=== PATIENT | female | born 1975 | race Caucasian/White ===

== ENCOUNTER 2017-02-26 17:42 | Emergency (ER) | payer OTHER ==
[2017-02-26] MEDS ORDERED: NITROGLYCERIN 0.4 MG 25 EA TAB SL ONE (18:07)
[2017-02-26] MEDS ORDERED: ASPIRIN TABLET 325 MG TAB PO ONE (18:07)
--- NOTE | 2017-02-26 18:21 | ED.PDOC ---
History of Present Illness - General Chief Complaint: Chest Pain/NH Stated Complaint: chest pain Time Seen by Provider: 02/26/17 18:07 Source: patient Exam Limitations: no limitations - History of Present Illness Initial Comments: Melanie Patel 41 y/o female stated that while she was at home sitting on her chair she had onset of chest heaviness got sweaty felt dizzy,nauseated and also had sharp headache her symptoms been steady and decide to come to er.Has history of htn,removal of brain tumor s/p craniotomy. Timing/Duration: 4-6 hours Severity: moderate Location: central, other - radiation to her back Activities at Onset: rest Prior Chest Pain/Cardiac Workup: no prior chest pain, no prior cardiac workup Improving Factors: nothing Worsening Factors: nothing Nitro Today/Relief: provided by ED Aspirin Treatment Today: 325 mg x 1, provided by ED Associated Symptoms: diaphoresis, headaches, nausea/vomiting Allergies/Adverse Reactions: Allergies NO KNOWN ALLERGY Allergy (Verified 02/26/17 17:59) Home Medications: Ambulatory Orders Fesoterodine Fumarate [Toviaz] 8 mg PO DAILY #0 07/01/13 Cephalexin Monohydrate [Keflex Cap] 500 mg PO Q6HRS #30 cap 12/06/14 Eletriptan Hydrobromide [Relpax] 40 mg PO DAILY PRN 12/06/14 Gabapentin 300 mg PO BID 04/03/15 HYDROcodone 10MG/APAP 325MG 10 bottle PO PRN 04/03/15 traZODone HCL [Desyrel] 150 mg PO DAILY 04/03/15 Review of Systems - Review of Systems Constitutional: States: no symptoms reported EENTM: States: no symptoms reported Cardiology: States: see HPI Gastrointestinal/Abdominal: States: no symptoms reported Genitourinary: States: other - oab chronic Musculoskeletal: States: no symptoms reported Skin: States: no symptoms reported Neurological: States: seizure - disorder Endocrine: States: no symptoms reported Hematologic/Lymphatic: States: no symptoms reported Past Medical History (General) - Patient Medical History Hx Seizures: Yes Hx Stroke: No Hx Dementia: No Hx Asthma: No Hx of COPD: No Hx Cardiac Disorders: No Hx Congestive Heart Failure: No Hx Pacemaker: No Hx Hypertension: Yes Hx Thyroid Disease: No Hx Diabetes: No Hx Gastroesophageal Reflux: No Hx Renal Disease: No Hx Cancer: No Hx of HIV: No Hx Hepatitis C: No Hx MRSA: No Hx Other PMH: Yes - migraine headaches Surgical History: Hysterectomy, other - craniotomy ,hysterectomy, carpal tunnel,c-spine - Vaccination History Hx Tetanus, Diphtheria Vaccination: No Hx Influenza Vaccination: Yes Hx Pneumococcal Vaccination: Yes - Social History Hx Tobacco Use: No Hx Chewing Tobacco Use: No Hx Alcohol Use: No Hx Substance Use: No Hx Substance Use Treatment: No Hx Depression: No Hx Physical Abuse: No Hx Emotional Abuse: No Hx Suspected Abuse: No - Activities of Daily Living Patient Lives Alone: No - family Hospice Agency (if applicable):: None Grooming Ability: Independent Eating (Feeding) Ability: Independent Toileting Ability: Independent - Female History Patient is a Female of Child Bearing Age (10 -59 yrs old): No Patient : No Family Medical History - Family History Mother Family History: Unknown Living Status: Unknown Hx Family Hypertension: Yes - parents Hx Family Stroke: Yes - brain aneurysm-dad,sister from it Hx Cardiac Disease: Yes - parents Physical Exam - Physical Exam General Appearance: Alert, Anxious, No apparent distress Eyes, Ears, Nose, Throat Exam: PERRL/EOMI, normal ENT inspection, TMs normal Neck: non-tender, full range of motion, supple, normal inspection Respiratory: chest non-tender, lungs clear, normal breath sounds, no respiratory distress Cardiovascular/Chest: normal peripheral pulses, regular rate, rhythm, no edema, no murmur Peripheral Pulses: radial,right: 2+, radial,left: 2+ Gastrointestinal/Abdominal: normal bowel sounds, non tender, soft, no organomegaly Extremity: normal range of motion, non-tender, normal inspection Neurologic: no motor/sensory deficits, alert, normal mood/affect, oriented x 3 Skin Exam: normal color, warm/dry Lymphatic: no adenopathy Progress - Results/Orders Results/Orders: Vital Signs - 8 hr 02/26/17 02/26/17 02/26/17 17:45 18:00 18:48 Temperature 98.4 F Pulse Rate [ 121 H 115 H pulse ox] Respiratory 20 Rate Blood Pressure 154/81 [Right Arm] O2 Sat by Pulse 96 96 Oximetry 02/26/17 18:07 IV Care:Saline Lock per Protoc QSHIFT Telemetry .ONCE Sodium Chloride 0.9% (Flush) [Saline Flush Syringe] 10 ml IV PRN PRN EKG Stat Pulse Ox Stat 02/26/17 18:20 THYROID STIMULATING HORMONE Stat Laboratory Results WBC 14.5 K/mm3 (4.8-10.8) H 02/26/17 18:20 RBC 4.45 M/mm3 (4.20-5.40) 02/26/17 18:20 Hgb 12.9 gm/dL (12.0-16.0) 02/26/17 18:20 Hct 39.1 % (36.0-47.0) 02/26/17 18:20 MCV 88.0 fl (81.0-99.0) 02/26/17 18:20 MCH 29.1 pg (27.0-31.0) 02/26/17 18:20 MCHC 33.1 g/dL (33.0-37.0) 02/26/17 18:20 RDW 13.4 % (11.5-14.5) 02/26/17 18:20 Plt Count 240 K/mm3 (130-400) 02/26/17 18:20 MPV 7.7 fl (7.40-10.4) 02/26/17 18:20 Absolute Neuts (auto) 11.70 K/uL (1.8-6.8) H 02/26/17 18:20 Absolute Lymphs (auto) 2.10 K/uL (1.0-3.4) 02/26/17 18:20 Absolute Monos (auto) 0.60 K/uL (0.2-0.8) 02/26/17 18:20 Absolute Eos (auto) 0.10 K/uL (0.0-0.4) 02/26/17 18:20 Absolute Basos (auto) 0.10 K/uL (0.0-0.1) 02/26/17 18:20 Neutrophils % 80.4 % (42.0-78.0) H 02/26/17 18:20 Lymphocytes % 14.4 % (20.0-50.0) L 02/26/17 18:20 Monocytes % 4.1 % (2.0-9.0) 02/26/17 18:20 Eosinophils % 0.3 % (1.0-5.0) L 02/26/17 18:20 Basophils % 0.8 % (0.0-2.0) 02/26/17 18:20 PT 10.3 SECONDS (9.4-12.5) 02/26/17 18:20 INR 0.910 02/26/17 18:20 PTT (SP) 32.6 SECONDS (25.1-36.5) 02/26/17 18:20 D-Dimer, Quantitative < 230 ng/mL (0-230) 02/26/17 18:20 Sodium 138 mmol/L (135-145) 02/26/17 18:20 Potassium 3.1 mmol/L (3.6-5.0) L 02/26/17 18:20 Chloride 107 mmol/L (101-111) 02/26/17 18:20 Carbon Dioxide 24 mmol/L (21-31) 02/26/17 18:20 Anion Gap 10.1 (12-18) L 02/26/17 18:20 BUN 17 mg/dL (7-18) 02/26/17 18:20 Creatinine 0.95 mg/dL (0.6-1.3) 02/26/17 18:20 BUN/Creatinine Ratio 17.9 (10-20) 02/26/17 18:20 Random Glucose 126 mg/dL (70-105) H 02/26/17 18:20 Serum Osmolality 278.8 mOsm/L (275-295) 02/26/17 18:20 Calcium 9.9 mg/dL (8.4-10.2) 02/26/17 18:20 Magnesium 1.8 mg/dL (1.8-2.5) 02/26/17 18:20 Total Bilirubin 0.2 mg/dL (0.2-1.0) 02/26/17 18:20 Direct Bilirubin < 0.1 mg/dL (0-0.2) 02/26/17 18:20 Indirect Bilirubin 0.1 mg/dL (0.2-0.8) L 02/26/17 18:20 AST 19 IU/L (10-42) 02/26/17 18:20 ALT 23 IU/L (10-60) 02/26/17 18:20 Alkaline Phosphatase 79 IU/L (42-121) 02/26/17 18:20 Creatine Kinase 43 IU/L (26-140) 02/26/17 18:20 CK-MB (CK-2) 1.2 ng/mL (0.0-4.4) 02/26/17 18:20 CK-MB (CK-2) % Not Reportable 02/26/17 18:20 Troponin I < 0.02 ng/mL (0.01-0.05) 02/26/17 18:20 B-Natriuretic Peptide 10.0 pg/ml (0-100) 02/26/17 18:20 Serum Total Protein 7.0 gm/dL (6.4-8.2) 02/26/17 18:20 Albumin 3.8 g/dl (3.2-5.5) 02/26/17 18:20 Urine Color Yellow (Yellow) 02/26/17 18:35 Urine Appearance Clear (Clear) 02/26/17 18:35 Urine pH 7.0 (4.5-7.8) 02/26/17 18:35 Ur Specific [place] 1.020 (1.005-1.030) 02/26/17 18:35 Urine Protein Negative mg/dL 02/26/17 18:35 Urine Glucose (UA) Negative mg/dL (Negative) 02/26/17 18:35 Urine Ketones Negative mg/dL (NEGATIVE) 02/26/17 18:35 Urine Blood Negative (Negative) 02/26/17 18:35 Urine Nitrite Negative 02/26/17 18:35 Urine Bilirubin Negative (NEGATIVE) 02/26/17 18:35 Urine Urobilinogen 0.2 mg/dL (0.2-1.0) 02/26/17 18:35 Ur Leukocyte Esterase Negative (Negative) 02/26/17 18:35 Urine RBC 0 /hpf 02/26/17 18:35 Urine WBC 0 /hpf 02/26/17 18:35 Ur Epithelial Cells 0 /hpf 02/26/17 18:35 Urine Bacteria 0 02/26/17 18:35 Urine Opiates Screen Negative ng/mL (2000) 02/26/17 18:35 Urine Barbiturates Negative ng/mL (200) 02/26/17 18:35 Ur Phencyclidine Scrn Negative ng/mL (25) 02/26/17 18:35 U Amphetamin/Meth Scrn Negative ng/mL (1000) 02/26/17 18:35 U Benzodiazepines Scrn Negative ng/mL (200) 02/26/17 18:35 U Cocaine Metab Screen Negative ng/mL (300) 02/26/17 18:35 U Cannabinoids Screen Negative ng/mL (50) 02/26/17 18:35 Vital Signs - 8 hr 02/26/17 02/26/17 02/26/17 17:45 18:00 18:48 Temperature 98.4 F Pulse Rate Pulse Rate [ 121 H 115 H pulse ox] Respiratory 20 Rate Blood Pressure 154/81 [Right Arm] O2 Sat by Pulse 96 96 Oximetry 02/26/17 02/26/17 02/26/17 19:16 20:13 20:30 Temperature 98.8 F Pulse Rate 104 H 94 H Pulse Rate [ 104 H 94 H pulse ox] Respiratory 16 16 Rate Blood Pressure 109/52 94/62 110/64 [Right Arm] O2 Sat by Pulse 98 98 Oximetry Vital Signs - 8 hr 02/26/17 02/26/17 02/26/17 17:45 18:00 18:48 Temperature 98.4 F Pulse Rate Pulse Rate [ 121 H 115 H pulse ox] Respiratory 20 Rate Blood Pressure 154/81 [Right Arm] O2 Sat by Pulse 96 96 Oximetry 02/26/17 02/26/17 02/26/17 19:16 20:13 20:30 Temperature 98.8 F Pulse Rate 104 H 94 H Pulse Rate [ 104 H 94 H pulse ox] Respiratory 16 16 Rate Blood Pressure 109/52 94/62 110/64 [Right Arm] O2 Sat by Pulse 98 98 Oximetry 02/26/17 02/26/17 02/26/17 21:06 21:36 22:14 Temperature Pulse Rate 83 Pulse Rate [ 83 86 87 pulse ox] Respiratory 18 16 12 Rate Blood Pressure 109/64 122/75 72/47 [Right Arm] O2 Sat by Pulse 99 97 Oximetry 02/26/17 22:32 Temperature Pulse Rate Pulse Rate [ 83 pulse ox] Respiratory 11 L Rate Blood Pressure 108/51 [Right Arm] O2 Sat by Pulse Oximetry 02/26/17 18:07 IV Care:Saline Lock per Protoc QSHIFT Telemetry .ONCE Sodium Chloride 0.9% (Flush) [Saline Flush Syringe] 10 ml IV PRN PRN EKG Stat Pulse Ox Stat 02/26/17 20:00 EKG STAT 02/26/17 20:59 Hold Metformin x 48Hrs [id number] 02/26/17 22:13 Sodium Chloride 0.9% 1000ML [Ns 1000 ml] 1,000 ml IVS ONCE Laboratory Results WBC 14.1 K/mm3 (4.8-10.8) H 02/26/17 21:08 RBC 4.06 M/mm3 (4.20-5.40) L 02/26/17 21:08 Hgb 11.8 gm/dL (12.0-16.0) L 02/26/17 21:08 Hct 36.1 % (36.0-47.0) 02/26/17 21:08 MCV 88.9 fl (81.0-99.0) 02/26/17 21:08 MCH 29.0 pg (27.0-31.0) 02/26/17 21:08 MCHC 32.7 g/dL (33.0-37.0) L 02/26/17 21:08 RDW 13.6 % (11.5-14.5) 02/26/17 21:08 Plt Count 225 K/mm3 (130-400) 02/26/17 21:08 MPV 7.6 fl (7.40-10.4) 02/26/17 21:08 Absolute Neuts (auto) 11.00 K/uL (1.8-6.8) H 02/26/17 21:08 Absolute Lymphs (auto) 2.30 K/uL (1.0-3.4) 02/26/17 21:08 Absolute Monos (auto) 0.70 K/uL (0.2-0.8) 02/26/17 21:08 Absolute Eos (auto) 0.10 K/uL (0.0-0.4) 02/26/17 21:08 Absolute Basos (auto) 0.10 K/uL (0.0-0.1) 02/26/17 21:08 Neutrophils % 78.0 % (42.0-78.0) 02/26/17 21:08 Lymphocytes % 16.0 % (20.0-50.0) L 02/26/17 21:08 Monocytes % 5.0 % (2.0-9.0) 02/26/17 21:08 Eosinophils % 0.4 % (1.0-5.0) L 02/26/17 21:08 Basophils % 0.6 % (0.0-2.0) 02/26/17 21:08 PT 10.3 SECONDS (9.4-12.5) 02/26/17 18:20 INR 0.910 02/26/17 18:20 PTT (SP) 32.6 SECONDS (25.1-36.5) 02/26/17 18:20 D-Dimer, Quantitative < 230 ng/mL (0-230) 02/26/17 18:20 Sodium 138 mmol/L (135-145) 02/26/17 18:20 Potassium 3.1 mmol/L (3.6-5.0) L 02/26/17 18:20 Chloride 107 mmol/L (101-111) 02/26/17 18:20 Carbon Dioxide 24 mmol/L (21-31) 02/26/17 18:20 Anion Gap 10.1 (12-18) L 02/26/17 18:20 BUN 17 mg/dL (7-18) 02/26/17 18:20 Creatinine 0.95 mg/dL (0.6-1.3) 02/26/17 18:20 BUN/Creatinine Ratio 17.9 (10-20) 02/26/17 18:20 Random Glucose 126 mg/dL (70-105) H 02/26/17 18:20 Serum Osmolality 278.8 mOsm/L (275-295) 02/26/17 18:20 Lactic Acid 0.4 mmol/L (0.5-2.2) L 02/26/17 20:14 Calcium 9.9 mg/dL (8.4-10.2) 02/26/17 18:20 Magnesium 1.8 mg/dL (1.8-2.5) 02/26/17 18:20 Total Bilirubin 0.2 mg/dL (0.2-1.0) 02/26/17 18:20 Direct Bilirubin < 0.1 mg/dL (0-0.2) 02/26/17 18:20 Indirect Bilirubin 0.1 mg/dL (0.2-0.8) L 02/26/17 18:20 AST 19 IU/L (10-42) 02/26/17 18:20 ALT 23 IU/L (10-60) 02/26/17 18:20 Alkaline Phosphatase 79 IU/L (42-121) 02/26/17 18:20 Creatine Kinase 43 IU/L (26-140) 02/26/17 18:20 CK-MB (CK-2) 1.2 ng/mL (0.0-4.4) 02/26/17 18:20 CK-MB (CK-2) % Not Reportable 02/26/17 18:20 Troponin I < 0.02 ng/mL (0.01-0.05) 02/26/17 20:14 B-Natriuretic Peptide 10.0 pg/ml (0-100) 02/26/17 18:20 Serum Total Protein 7.0 gm/dL (6.4-8.2) 02/26/17 18:20 Albumin 3.8 g/dl (3.2-5.5) 02/26/17 18:20 TSH 1.74 uIU/mL (0.34-5.60) 02/26/17 18:20 Urine Color Yellow (Yellow) 02/26/17 18:35 Urine Appearance Clear (Clear) 02/26/17 18:35 Urine pH 7.0 (4.5-7.8) 02/26/17 18:35 Ur Specific [place] 1.020 (1.005-1.030) 02/26/17 18:35 Urine Protein Negative mg/dL 02/26/17 18:35 Urine Glucose (UA) Negative mg/dL (Negative) 02/26/17 18:35 Urine Ketones Negative mg/dL (NEGATIVE) 02/26/17 18:35 Urine Blood Negative (Negative) 02/26/17 18:35 Urine Nitrite Negative 02/26/17 18:35 Urine Bilirubin Negative (NEGATIVE) 02/26/17 18:35 Urine Urobilinogen 0.2 mg/dL (0.2-1.0) 02/26/17 18:35 Ur Leukocyte Esterase Negative (Negative) 02/26/17 18:35 Urine RBC 0 /hpf 02/26/17 18:35 Urine WBC 0 /hpf 02/26/17 18:35 Ur Epithelial Cells 0 /hpf 02/26/17 18:35 Urine Bacteria 0 02/26/17 18:35 Urine Opiates Screen Negative ng/mL (2000) 02/26/17 18:35 Urine Barbiturates Negative ng/mL (200) 02/26/17 18:35 Ur Phencyclidine Scrn Negative ng/mL (25) 02/26/17 18:35 U Amphetamin/Meth Scrn Negative ng/mL (1000) 02/26/17 18:35 U Benzodiazepines Scrn Negative ng/mL (200) 02/26/17 18:35 U Cocaine Metab Screen Negative ng/mL (300) 02/26/17 18:35 U Cannabinoids Screen Negative ng/mL (50) 02/26/17 18:35 - EKG/XRAY/CT EKG: Sinus, Tachy, no ST T wave changes Comments: heart rate-117 CT: head no contrast-no acute abnormalities noted/radiologist - Additional EKG/XRAY/Consults EKG #2: Sinus, no ST T wave changes Comments: heart rate-86 Departure - Departure Clinical Impression: Chest tightness or pressure Migraine Qualifiers: Migraine type: unspecified Status migrainosus presence: without status migrainosus Intractability: not intractable Qualified Code(s): G43.909 - Migraine, unspecified, not intractable, without status migrainosus Hypotension Qualifiers: Hypotension type: idiopathic hypotension Qualified Code(s): I95.0 - Idiopathic hypotension Time of Disposition: 22:41 - D/W Dr. Diego sunshine md [facility] for transfer Disposition: Transfer to Hospital Condition: Fair Departure Forms: Patient Portal Self Enrollment Referrals: QUINCY HERNANDEZ [Primary Care Provider] - 1-2 Weeks Home Medications: Ambulatory Orders Fesoterodine Fumarate [Toviaz] 8 mg PO DAILY #0 07/01/13 Cephalexin Monohydrate [Keflex Cap] 500 mg PO Q6HRS #30 cap 12/06/14 Eletriptan Hydrobromide [Relpax] 40 mg PO DAILY PRN 12/06/14 Gabapentin 300 mg PO BID 04/03/15 HYDROcodone 10MG/APAP 325MG 10 bottle PO PRN 04/03/15 traZODone HCL [Desyrel] 150 mg PO DAILY 04/03/15
[2017-02-26] MEDS ORDERED: SODIUM CHLORIDE 0.9% 500ML 500 ML IVS ONE (18:26)
--- NOTE | 2017-02-26 18:32 | RAD ---
EXAM DESCRIPTION: Chest,1 View CLINICAL HISTORY: 41 years Female pain COMPARISON: None. FINDINGS: The cardiomediastinal silhouette appears unremarkable. No consolidating infiltrates or pleural effusions. No pneumothorax. IMPRESSION: No acute abnormality is identified. Electronically signed by: Digna Thurman 02/26/2017 6:32 PM CDT
[2017-02-26] MEDS: SODIUM CHLORIDE 0.9% (FLUSH) 10 ML SYG IV PRN ×2 (19:04→20:12)
[2017-02-26] MEDS ORDERED: fentaNYL CITRATE INJ 50 MCG/ML AMP IV ONE (19:28)
[2017-02-26] MEDS ORDERED: SODIUM CHLORIDE 0.9% 1000ML 1,000 ML IVS ONE ×2 (19:36→22:13)
--- NOTE | 2017-02-26 20:13 | CT ---
PROCEDURE: Head CLINICAL HISTORY: 41 years Female headache COMPARISON: 09/17/2012 TECHNIQUE: Contiguous axial images obtained through the brain without IV contrast. This exam was performed according to our department optimization program which includes automated exposure control, adjustment of the mA and/or kv according to patient size and/or use of iterative reconstruction technique. FINDINGS: The ventricles and sulci are within normal limits for the patient's age. No midline shift or mass effect. No masses identified. No acute intracranial hemorrhage. No fluid or significant mucosal thickening in the visualized paranasal sinuses. No depressed calvarial fractures. IMPRESSION: No acute intracranial abnormality is identified. Electronically signed by: Digna Thurman 02/26/2017 8:13 PM CDT
--- NOTE | 2017-02-26 21:49 | CT ---
PROCEDURE: CTA Chest CLINICAL HISTORY: 41 years Female pain COMPARISON: None. TECHNIQUE: Contiguous axial images obtained through the chest during the infusion of IV contrast. Reformatted images obtained. MIP reformatted images obtained. This exam was performed according to our department optimization program which includes automated exposure control, adjustment of the mA and/or kv according to patient size and/or use of iterative reconstruction technique. FINDINGS: The aorta is normal in caliber without dissection or rupture. No evidence of pulmonary embolus. No mediastinal or hilar adenopathy. No acute infiltrate. No pericardial or pleural effusion. Upper abdominal structures appear unremarkable. IMPRESSION:No evidence of pulmonary embolus Electronically signed by: Digna Thurman 02/26/2017 9:49 PM CDT
[2017-02-26] MEDS ORDERED: SODIUM CHLORIDE 0.9% 1000ML 1,000 ML ONE (22:14)
[2017-02-26 22:15] VITALS: O2SAT 97
[2017-02-26] MEDS ORDERED: HYDROCORTISONE SOD SUCC INJ 100 MG/2 ML VIAL IV ONE (22:17)
[2017-02-26 23:10] VITALS: BP 97/68; TEMP 97.7
== END 2017-02-26 23:08 | disposition short-term general hospital (02) ==
LOC: ER 17:42
DX: R07.89 Other chest pain (principal); G43.909 Migraine, unspecified, not intractable, without status migrainosus; I95.0 Idiopathic hypotension; I10 Essential (primary) hypertension; Z79.899 Other long term (current) drug therapy
CPT/HCPCS: 36415; 70450; 71010; 71275; 80048; 80076; 80307; 81001; 82550; 82553; 83605; 83880; 84443; 84484; 85025; 85379; 85610; 85730; 93005; 94760; J1720; J3010; J7030; J7040

== ENCOUNTER 2018-06-05 17:18 | Emergency (ER) | payer OTHER ==
[2018-06-05] MEDS ORDERED: SODIUM CHLORIDE 0.9% 1000ML 1,000 ML IVS ONE (17:34)
[2018-06-05] MEDS ORDERED: KETOROLAC TROMETHAMINE INJ 30 MG/ML VIAL IV ONE (17:34)
[2018-06-05] MEDS ORDERED: SODIUM CHLORIDE 0.9% (FLUSH) 10 ML SYG IV PRN (17:34)
[2018-06-05] MEDS ORDERED: PROMETHAZINE HCL INJ 25 MG in SODIUM CHLORIDE 0.9% 50ML 50 ML IVPB ONE (17:35)
[2018-06-05 17:38] VITALS: O2SAT 100
--- NOTE | 2018-06-05 17:44 | ED.PDOC ---
History of Present Illness - General Source: patient Exam Limitations: no limitations - History of Present Illness Initial Comments: PT REPORTS 3 DAY HISTORY OF 9/10 MIGRAINE HEADACHE ASSOCIATED WITH NAUSEA, VOMITING, AND PHOTOPHOBIA. PT REPORTS THAT SHE HAS HAD INCREASED SEIZURE ACTIVITY ACCORDING TO HER . PT STATES THAT TODAYS MIGRAINE IS TYPICAL OF MIGRAINES IN THE PAST. SHE REPORTS NO RELIEF FROM RELPAX AT HOME. Quality: severe Head Injury Location: frontal Recent Head Trauma: chronic headaches Improving Factors: rest, other - DARK QUIET ROOM Worsening Factors: other - BRIGHT LIGHT/LOUD NOISES Associated Symptoms: nausea/vomiting, seizures <Arcelia Fulton H - Last Filed: 06/05/18 17:39> <Sherif Bateman - Last Filed: 06/05/18 20:44> - General Chief Complaint: Headache Stated Complaint: MIGRAINE, N/V Time Seen by Provider: 06/05/18 17:34 - History of Present Illness Allergies/Adverse Reactions: Allergies NO KNOWN ALLERGY Allergy (Verified 02/26/17 17:59) Home Medications: Ambulatory Orders Fesoterodine Fumarate [Toviaz] 8 mg PO DAILY #0 07/01/13 Cephalexin Monohydrate [Keflex Cap] 500 mg PO Q6HRS #30 cap 12/06/14 Eletriptan Hydrobromide [Relpax] 40 mg PO DAILY PRN 12/06/14 Gabapentin 300 mg PO BID 04/03/15 HYDROcodone 10MG/APAP 325MG 10 bottle PO PRN 04/03/15 traZODone HCL [Desyrel] 150 mg PO DAILY 04/03/15 Review of Systems - Review of Systems Constitutional: Denies: chills, fever EENTM: Denies: blurred vision, double vision Respiratory: Denies: cough, short of breath Cardiology: Denies: chest pain, palpitations Gastrointestinal/Abdominal: States: see HPI, nausea, vomiting. Denies: abdominal pain Genitourinary: Denies: dysuria, frequency Musculoskeletal: Denies: joint pain, joint swelling Skin: Denies: dryness, lesions Neurological: States: see HPI, headache, seizure. Denies: numbness Endocrine: States: no symptoms reported <Arcelia Fulton H - Last Filed: 06/05/18 17:39> Past Medical History (General) - Patient Medical History Hx Seizures: Yes Hx Stroke: No Hx Dementia: No Hx Asthma: Yes Hx of COPD: No Hx Cardiac Disorders: No Hx Congestive Heart Failure: No Hx Pacemaker: No Hx Hypertension: Yes Hx Thyroid Disease: No Hx Diabetes: No Hx Gastroesophageal Reflux: No Hx Renal Disease: No Hx Cancer: No Hx of HIV: No Hx Hepatitis C: No Hx MRSA: No - Vaccination History Hx Tetanus, Diphtheria Vaccination: Yes Hx Influenza Vaccination: Yes Hx Pneumococcal Vaccination: Yes Immunizations Up to Date: No - Social History Hx Tobacco Use: No Hx Chewing Tobacco Use: No Hx Alcohol Use: No Hx Substance Use: No Hx Substance Use Treatment: No Hx Depression: No Feels Threatened In Home Enviroment: No Feels Threatened In a Relationship: No Hx Physical Abuse: No Hx Emotional Abuse: No Hx Suspected Abuse: No - Female History Patient is a Female of Child Bearing Age (10 -59 yrs old): No Patient : No <Arcelia Fulton - Last Filed: 06/05/18 17:39> Family Medical History - Family History Mother Family History: Unknown Living Status: Unknown Hx Family Hypertension: Yes - parents Hx Family Stroke: Yes - brain aneurysm-dad,sister from it Hx Cardiac Disease: Yes - parents <Arcelia Fulton - Last Filed: 06/05/18 17:39> Physical Exam - Physical Exam General Appearance: Alert, Obvious distress, Obese, Well Groomed Eyes, Ears, Nose, Throat Exam: normal ENT inspection, photophobia Neck: normal inspection, other - POSTERIOR NECK TENDERNESS Cardiovascular/Chest: regular rate, rhythm, no murmur Respiratory: normal breath sounds, no respiratory distress Gastrointestinal/Abdominal: non tender, soft Back Exam: normal inspection, no CVA tenderness Extremity: non-tender, normal inspection Mental Status: alert, oriented x 3 facility operations manager Exam: normal hearing, normal speech Coordination/Gait: normal gait Motor/Sensory: no motor deficit, no sensory deficit <DonaldoArcelia - Last Filed: 06/05/18 17:39> Progress - EKG/XRAY/CT CT Ordered: No CT Interpretation Call Back: No <DonaldoRachellemiki Frankie - Last Filed: 06/05/18 17:39> - Progress Progress: 06/05/18 20:40 The patient is a 42-year-old female presented to emergency room with what she reports is her typical migraine that has lasted longer than it normally does. Her Relpax has filled her for 3 days. She has apparently had previous workups for her migraines. Every now and she gets 1 that requires additional treatment. No new symptoms with this one. Laboratory work is reassuring. the patient has responded well to IV fluids, antiemetics and a dose of pain medications. She will be allowed to go home to get some sleep. She does need follow-up with her primary care doctor around Sunday. ER warnings were given.she has exhibited no focal neurological changes and there is no clinical evidence of any meningitis or altered mental status. 06/05/18 20:43 - Results/Orders Results/Orders: Laboratory Tests 06/05/18 06/05/18 06/05/18 17:45 17:45 18:15 WBC 7.9 RBC 4.39 Hgb 13.2 Hct 40.4 MCV 91.9 MCH 30.0 MCHC 32.7 L RDW 12.9 Plt Count 206 MPV 8.5 Absolute Neuts (auto) 5.10 Absolute Lymphs (auto) 1.80 Absolute Monos (auto) 0.60 Absolute Eos (auto) 0.30 Absolute Basos (auto) 0.00 Neutrophils % 64.8 Lymphocytes % 23.0 Monocytes % 7.8 Eosinophils % 3.9 Basophils % 0.5 Sodium 142 Potassium 3.7 Chloride 112 H Carbon Dioxide 25 Anion Gap 8.7 L BUN 12 Creatinine 0.88 BUN/Creatinine Ratio 13.6 Random Glucose 73 Serum Osmolality 281.5 Calcium 10.3 H Urine Color Yellow Urine Appearance Sl cloudy Urine pH 6.0 Ur Specific [place] 1.010 Urine Protein Negative Urine Glucose (UA) Negative Urine Ketones Negative Urine Blood Negative Urine Nitrite Negative Urine Bilirubin Negative Urine Urobilinogen 0.2 Ur Leukocyte Esterase Negative Urine RBC 0 Urine WBC 0-1 Ur Epithelial Cells 3-5 Amorphous Sediment 1+ Urine Bacteria 1+ <Sherif Bateman L - Last Filed: 06/05/18 20:44> Departure <Arcelia Fulton - Last Filed: 06/05/18 17:39> - Departure Diet: regular diet Activity: increase activity as tolerated <Sherif Bateman - Last Filed: 06/05/18 20:44> - Departure Clinical Impression: Migraine Qualifiers: Migraine type: unspecified Status migrainosus presence: without status migrainosus Intractability: not intractable Qualified Code(s): G43.909 - Migraine, unspecified, not intractable, without status migrainosus Disposition: Discharge to Home or Self Care Condition: Fair Departure Forms: ED Discharge - Pt. Copy, Patient Portal Self Enrollment Instructions: Migraine Headaches in Adults Referrals: QUINCY HERNANDEZ [Primary Care Provider] - 1-2 Days Home Medications: Ambulatory Orders Fesoterodine Fumarate [Toviaz] 8 mg PO DAILY #0 07/01/13 Cephalexin Monohydrate [Keflex Cap] 500 mg PO Q6HRS #30 cap 12/06/14 Eletriptan Hydrobromide [Relpax] 40 mg PO DAILY PRN 12/06/14 Gabapentin 300 mg PO BID 04/03/15 HYDROcodone 10MG/APAP 325MG 10 bottle PO PRN 04/03/15 traZODone HCL [Desyrel] 150 mg PO DAILY 04/03/15 Additional Instructions: Patient presented with migraine lasting for almost 3 days. She has received IV fluids, an anti-inflammatory, a muscle relaxer, an antiemetic and a pain medication. She is feeling somewhat better. The patient will be allowed to go home. She needs to follow up with her primary care doctor towards the end of the week. ER warnings were given.
[2018-06-05] MEDS ORDERED: PROMETHAZINE HCL INJ 25 MG/ML VIAL ONE (18:47)
[2018-06-05] MEDS ORDERED: SODIUM CHLORIDE 0.9% 50ML 50 ML ONE (18:48)
[2018-06-05] MEDS ORDERED: CYCLOBENZAPRINE HCL 5 MG TAB PO ONE (19:12)
[2018-06-05] MEDS ORDERED: predniSONE 20 MG TAB PO ONE (19:12)
[2018-06-05] MEDS ORDERED: HYDROcodone 10MG/APAP 325MG 1 EA TAB PO ONE (19:12)
[2018-06-05 20:52] VITALS: BP 141/96; TEMP 97.9
== END 2018-06-05 20:51 | disposition home or self-care (01) ==
LOC: ER 17:18
DX: G43.909 Migraine, unspecified, not intractable, without status migrainosus (principal); J45.909 Unspecified asthma, uncomplicated; I10 Essential (primary) hypertension; R56.9 Unspecified convulsions; Z79.899 Other long term (current) drug therapy
CPT/HCPCS: 36415; 80048; 81001; 85025; A4216; J1885; J2550; J7030; J7512

== ENCOUNTER → 2018-12-24 | Outpatient (CLI) | payer OTHER ==
--- NOTE | 2018-12-25 14:40 | MAM ---
EXAM DESCRIPTION: 3D Screening BILATERAL : Digital Mammography. CLINICAL HISTORY: 43 years Female ANNUAL SCREENING . Occasional breast tenderness. No personal history of breast cancer. Sister with breast and ovarian cancer. Mother with ovarian cancer. Remote family history of breast and ovarian cancer. Childbirth. Postmenopausal 10 years. No HRT. Left breast larger than right.. Lifetime risk of developing breast cancer (Tyrer-Cuzick model)(%): 9.0. COMPARISON: Baseline study at this facility.. No prior reports available. TECHNIQUE: Bilateral CC and MLO projection full-field images, digital tomosynthesis mammographic technique. Bilateral digital 2-D full-field MLO images. CAD not available for tomosynthesis or 2-D images. FINDINGS: The breast parenchymal density pattern is: Almost entirely fatty. No skin thickening or nipple retraction. No new focal, stellate mass or density, focal asymmetry , and no suspicious microcalcifications bilaterally. IMPRESSION: BI-RADS CATEGORY: 1 - NEGATIVE FOLLOW UP: Routine digital bilateral screening, one year interval from date Written communication explaining the findings and follow-up, will be mailed to the patient and referring health care provider. According to the [employer], yearly mammograms are recommended starting at age 40 and continuing as long as a woman is in good health. Any breast change noted on a breast self-exam should be reported promptly to the patient's healthcare provider. Breast MRI is recommended for women with an approximately 20-25% or greater lifetime risk of breast cancer, including women with a strong family history of breast or ovarian cancer and women who have been treated for Hodgkin's disease. A negative mammographic report should not delay tissue diagnosis in patients with significant clinical history or physical findings. Extremely dense breast tissue limits the sensitivity of digital mammography. Electronically signed by: Jai Rubio MD 12/25/2018 2:37 PM CDT
== END ==
LOC: MAMMO 10:00
PROVIDERS: ATTEND Emergency Medicine
DX: Z12.31 Encounter for screening mammogram for malignant neoplasm of breast (principal)

== ENCOUNTER 2019-05-06 09:56 | Observation (INO) | payer OTHER ==
[2019-05-06] MEDS ORDERED: SODIUM CHLORIDE 0.9% (FLUSH) 10 ML SYG IV PRN ×2 (10:21→16:17)
[2019-05-06] MEDS ORDERED: NITROGLYCERIN 0.4 MG 25 EA TAB SL ONE (10:21)
[2019-05-06] MEDS ORDERED: ASPIRIN TABLET 325 MG TAB PO ONE (10:21)
--- NOTE | 2019-05-06 10:24 | ED.PDOC ---
History of Present Illness - General Chief Complaint: Chest Pain/[place] Stated Complaint: chest pain Time Seen by Provider: 05/06/19 10:08 Source: patient Exam Limitations: no limitations - History of Present Illness Initial Comments: PT PRESENTS WITH COMPLAINT OF CHEST PAIN THAT BEGAN LAST NIGHT AROUND MIDNIGHT. PT DESCRIBES THAT PAIN A MIDSTERNAL PRESSURE THAT RADIATES TO THE LUE. PT ALSO REPORTS SOB AND BILATERAL LEG SWELLING AND PAIN. PT STATES THAT SHE RODE A BUS FROM [place] FOR 3 DAYS RECENTLY. PT DENIES HX OF CAD BUT DOES REPORT HISTORY OF CVA AND HTN. Timing/Duration: 7-24 hours Severity/Quality: moderate, dull, pressure Location: substernal Chest Pain Radiation: arms Activities at Onset: none Prior Chest Pain/Cardiac Workup: no prior chest pain, no prior cardiac workup Improving Factors: nothing Worsening Factors: nothing Nitro Today/Relief: no nitro taken today Aspirin Treatment Today: no aspirin today Associated Symptoms: edema, shortness of breath Allergies/Adverse Reactions: Allergies NO KNOWN ALLERGY Allergy (Verified 02/26/17 17:59) Home Medications: Ambulatory Orders Fesoterodine Fumarate [Toviaz] 8 mg PO DAILY #0 07/01/13 Eletriptan Hydrobromide [Relpax] 40 mg PO DAILY PRN 12/06/14 Gabapentin 600 mg PO TID 04/03/15 HYDROcodone 10MG/APAP 325MG 1 each PO TID PRN 04/03/15 Benzonatate 200 mg PO Q12H 05/06/19 Budesonide-Formoterol Fumarate [Symbicort] 1 aer IN DAILY 05/06/19 Clonazepam 0.5 mg PO Q6H PRN 05/06/19 Hydroxyzine HCl 12.5 mg PO NOON 05/06/19 Hydroxyzine HCl 25 mg PO BEDTIME 05/06/19 Losartan Potassium & Hydrochlo [Losartan Potassium/Hydroc 100-25 mg] 1 tab PO DAILY 05/06/19 Methocarbamol 500 mg PO QID PRN 05/06/19 Multiple Vitamins W/ Minerals [Womens One Daily] 1 tab PO DAILY 05/06/19 Topiramate [Topamax] 200 mg PO BID 05/06/19 Review of Systems - Review of Systems Constitutional: Denies: chills, fever EENTM: Denies: nose congestion, throat pain Respiratory: States: see HPI, short of breath. Denies: cough Cardiology: States: see HPI, chest pain, edema Gastrointestinal/Abdominal: Denies: diarrhea, vomiting Genitourinary: Denies: dysuria, frequency Musculoskeletal: Denies: joint pain, joint swelling Skin: Denies: dryness, lesions Neurological: Denies: headache, paresthesia Endocrine: States: no symptoms reported Hematologic/Lymphatic: States: no symptoms reported Past Medical History (General) - Patient Medical History Hx Seizures: Yes - Epilepsy Hx Stroke: No Hx Dementia: No Hx Asthma: Yes Hx of COPD: No Hx Cardiac Disorders: No Hx Congestive Heart Failure: No Hx Pacemaker: No Hx Hypertension: Yes Hx Thyroid Disease: No Hx Diabetes: No Hx Gastroesophageal Reflux: No Hx Renal Disease: No Hx Cancer: No Hx of HIV: No Hx Hepatitis C: No Hx MRSA: No - Vaccination History Hx Tetanus, Diphtheria Vaccination: Yes Hx Influenza Vaccination: Yes Hx Pneumococcal Vaccination: Yes - Social History Hx Tobacco Use: No Hx Chewing Tobacco Use: No Hx Alcohol Use: No Hx Substance Use: No Hx Substance Use Treatment: No Hx Depression: No Hx Physical Abuse: No Hx Emotional Abuse: No Hx Suspected Abuse: No - Female History Patient : No Family Medical History - Family History Mother Family History: Unknown Living Status: Unknown Hx Family Hypertension: Yes - parents Hx Family Stroke: Yes - brain aneurysm-dad,sister from it Hx Cardiac Disease: Yes - parents Physical Exam - Physical Exam General Appearance: Alert, Obese, Well Groomed, Well Hydrated, Other - APPEARS UNCOMFORTABLE Eyes, Ears, Nose, Throat Exam: normal ENT inspection Neck: full range of motion, supple Respiratory: lungs clear, normal breath sounds, no respiratory distress Cardiovascular/Chest: regular rate, rhythm Progress - Progress Progress: 05/06/19 12:10 PT REPORTS SIGNIFICANT IMPROVEMENT IN CHEST PAIN AFTER 1SL NTG. NOW RATING IT AT 3/10. PTS BP DROPPED TO 82 SYSTOLIC AFTER INITIAL DOSE. FURTHER DOSES HELD. BP IMPROVED TO 119 AFTER INITIATION OF IV NS BOLUS. LABS AND DIAGNOSTICS DISCUSSED. - Results/Orders Results/Orders: Laboratory Tests 05/06/19 05/06/19 10:15 10:15 WBC 6.5 RBC 4.26 Hgb 13.0 Hct 38.9 MCV 91.3 MCH 30.6 MCHC 33.5 RDW 12.9 Plt Count 211 MPV 8.3 Absolute Neuts (auto) 4.40 Absolute Lymphs (auto) 1.50 Absolute Monos (auto) 0.50 Absolute Eos (auto) 0.10 Absolute Basos (auto) 0.10 Neutrophils % 67.1 Lymphocytes % 22.6 Monocytes % 7.2 Eosinophils % 2.2 Basophils % 0.9 PT < 8.9 L INR < 1.00 PTT (SP) 26.4 D-Dimer, Quantitative 0.60 H* Sodium 139 Potassium 3.8 Chloride 113 H Carbon Dioxide 18 L Anion Gap 11.8 L BUN 19 H Creatinine 0.93 BUN/Creatinine Ratio 20.4 H Random Glucose 91 Serum Osmolality 279.4 Calcium 9.8 Magnesium 2.1 Total Bilirubin 0.5 Direct Bilirubin < 0.1 Indirect Bilirubin 0.4 AST 17 ALT 18 Alkaline Phosphatase 67 Creatine Kinase 40 CK-MB (CK-2) 1.3 CK-MB (CK-2) % Not Reportable Troponin I < 0.02 B-Natriuretic Peptide 9.1 Serum Total Protein 6.8 Albumin 3.9 - EKG/XRAY/CT EKG: Sinus - @88BPM, NL INTERVALS, NL AXIS, no ST T wave changes, Unchanged from - 02/26/17 - Additional EKG/XRAY/Consults EKG #2: Sinus - @75bpm, NL INTERVALS, NL AXIS, no ST T wave changes, Unchanged from - PREVIOUS EKG Departure - Departure Clinical Impression: Chest pain, Lower extremity edema, Dehydration, Cholelithiasis Time of Disposition: 12:12 Disposition: Admit Patient Condition: Fair Home Medications: Ambulatory Orders Fesoterodine Fumarate [Toviaz] 8 mg PO DAILY #0 07/01/13 Eletriptan Hydrobromide [Relpax] 40 mg PO DAILY PRN 12/06/14 Gabapentin 600 mg PO TID 04/03/15 HYDROcodone 10MG/APAP 325MG 1 each PO TID PRN 04/03/15 Benzonatate 200 mg PO Q12H 05/06/19 Budesonide-Formoterol Fumarate [Symbicort] 1 aer IN DAILY 05/06/19 Clonazepam 0.5 mg PO Q6H PRN 05/06/19 Hydroxyzine HCl 12.5 mg PO NOON 05/06/19 Hydroxyzine HCl 25 mg PO BEDTIME 05/06/19 Losartan Potassium & Hydrochlo [Losartan Potassium/Hydroc 100-25 mg] 1 tab PO DAILY 05/06/19 Methocarbamol 500 mg PO QID PRN 05/06/19 Multiple Vitamins W/ Minerals [Womens One Daily] 1 tab PO DAILY 05/06/19 Topiramate [Topamax] 200 mg PO BID 05/06/19 Decision To Admit - Decistion To Admit Decision to Admit Reason: Admit from ER Decision to Admit Date: 05/06/19 Decision to Admit Time: 12:13 - CASE DISCUSSED WITH DARLENE RIVERA NP WHO AGREES TO ADMIT
[2019-05-06] MEDS ORDERED: SODIUM CHLORIDE 0.9% 1000ML 1,000 ML IVS ONE (10:58)
--- NOTE | 2019-05-06 11:06 | RAD ---
EXAM DESCRIPTION: Chest,1 View CLINICAL HISTORY: 43 years Female, chest pain COMPARISON: Previous chest x-ray February 26, 2017 TECHNIQUE: AP portable chest. FINDINGS: Heart size is prominent with normal pulmonary vascularity. Plate and screws in the lower C-spine. No consolidating infiltrate. No pulmonary mass or worrisome nodule. No pneumothorax or pleural effusion. Bones are unremarkable. IMPRESSION: No acute process is identified in the chest. Electronically signed by: Dayne Barrow MD 05/06/2019 11:04 AM CDT
--- NOTE | 2019-05-06 11:38 | CT ---
EXAM DESCRIPTION: CTA Chest CLINICAL HISTORY: chest pain COMPARISON: February 26, 2017. TECHNIQUE: Chest CTA was performed with IV contrast including MIP and/or Three-D reconstructed images. This exam was performed according to our departmental dose-optimization program, which includes automated exposure control, adjustment of the mA and/or kV according to patient size and/or use of iterative reconstruction technique. FINDINGS: No pulmonary embolus. No thoracic aortic aneurysm or dissection. Visualized portions of the thyroid and thoracic inlet are unremarkable. No mediastinal or hilar adenopathy. No pleural or pericardial effusion. No esophageal wall thickening. The central airways are clear. No airspace consolidation or lung mass. No pneumothorax or fracture. The gallbladder is slightly distended, measuring 4.3 cm transverse diameter without pericholecystic inflammation or calcified gallstone. Visualized portions of the upper abdomen are otherwise unremarkable. No fracture or pneumothorax. Postoperative changes in the cervical spine. IMPRESSION: No pulmonary embolus or other acute intrathoracic abnormality. Slightly dilated gallbladder without pericholecystic inflammation calcified gallstone. If clinically suspicious of cholelithiasis, right upper quadrant ultrasound is suggested. Electronically signed by: Ritchie Moreland MD 05/06/2019 11:37 AM CDT
[2019-05-06] MEDS ORDERED: KETOROLAC TROMETHAMINE INJ 30 MG/ML VIAL IV ONE (11:42)
--- NOTE | 2019-05-06 12:45 | HP ---
SUPERVISING PHYSICIAN: Lul Peterson M.D. CHIEF COMPLAINT: Chest tightness. HISTORY OF PRESENT ILLNESS: This is a 43 year-old female patient who has a 2 day history of tightness in her chest that radiates to the mid back and to the left arm. It started about 2 days ago. It lasted for several hours and then dissipated, and started back up last night. It is mid sternal. It is not alleviated by anything other than rest. There are no factors that make it worse. She came to the Emergency Room due to shortness of breath with lower extremity swelling. She was also clammy. She had some nausea but no vomiting. She does use oxygen at home due to her asthma and obstructive sleep apnea. In the E. R. her vital signs showed a temperature 97.9, heart rate 87, blood pressure 131/113, respiratory rate 20, O2 sat 99% on room air. Laboratory was done. CBC was within normal limits. PT was less than 8.9, INR was less than 1, PTT is 26.4. D-dimer was elevated at 0.60. Sodium 139, potassium 3.8, chloride 113, carbon dioxide 18, BUN 19, creatinine 0.93. Initial set of cardiac enzymes was negative and 2 hours later her troponin was less than 0.02. Chest x-ray was obtained that showed no acute process identified in the chest. A CTA of the chest was done that shows no pulmonary embolus or other acute intrathoracic abnormality. A slightly dilated gallbladder without pericholecystic inflammation. Calcified gallstone. If clinically suspicious of cholelithiasis, right upper quadrant ultrasound is suggested. I was called for hospital admission. PAST MEDICAL HISTORY: 1. Anxiety. 2. Hypertension. 3. Asthma. 4. Seizure disorder. Her last seizure was 2-1/2 months ago. She is on Gabapentin for that. 5. Migraine headaches. 6. Herniated disc in her back. 7. Obstructive sleep apnea. PAST SURGICAL HISTORY: 1. Three back and neck surgeries. 2. Hysterectomy. 3. sections. OUTPATIENT MEDICATIONS: 1. Tessalon Perles. 2. Relpax. 3. Methocarbamol. 4. Multivitamins. 5. Budesonide/Formoterol. 6. Clonazepam. 7. Toviaz. 8. Gabapentin. 9. Hydrocodone. 10. Hydroxyzine. 11. Losartan/Hydrochlorothiazide. 12. Topiramate. ALLERGIES: NO KNOWN DRUG ALLERGIES. SOCIAL HISTORY: She lives in [place]. She is disabled. She has no history of tobacco, ETOH or illicit drug use. REVIEW OF SYSTEMS: GENERAL: Denies fever, fatigue or weight changes. HEENT: Negative for vision changes, ear pain, sinus symptoms or sore throat. RESPIRATORY: Positive for shortness of breath. Negative for coughing or wheezing. CARDIAC: Positive for chest pain. Negative for palpitations or tachycardia. GASTROINTESTINAL: Positive for nausea. Negative for vomiting, diarrhea or constipation. GENITOURINARY: Negative for hematuria, dysuria or polyuria. MUSCULOSKELETAL: Negative for myalgias or arthralgias. SKIN: Negative for lesions or rashes. NEUROLOGIC: Positive for seizures and migraines. Last seizure was 2-1/2 months ago. Negative for weakness. PHYSICAL EXAMINATION: VITAL SIGNS: Temperature 97.3, heart rate 77, blood pressure 118/91, respiratory rate 20, O2 sat 98% on room air. GENERAL: This is a 43 year-old obese white female who is lying in her hospital bed. She is in no acute distress. HEENT: Normocephalic and atraumatic. Pupils are equal and reactive. Oropharynx is clear. NECK: Supple without mass. There is no discernible jugular venous distention. CARDIOVASCULAR: Regular rate and rhythm. Sinus rhythm on the manager monitoring. GASTROINTESTINAL: Abdomen is soft, nondistended, non-tender. Bowel sounds are positive. EXTREMITIES: No clubbing, cyanosis or edema. NEUROLOGIC: She is awake, alert and oriented times three. Cranial nerves II- XII are grossly intact. LABORATORY: Labs and films are as per the History of Present Illness. ASSESSMENT: 1. Chest pain, rule out acute coronary syndrome. 2. Abdominal pain with cholelithiasis with concerns for developing gallbladder problems that may be contributing to #1. 3. Seizure disorder on Gabapentin. 4. Hypertension on medications. 5. Obstructive sleep apnea on O2 at home. Needs a sleep study for possible CPAP. 6. Chronic pain syndrome secondary to back pain on narcotics. 7. Asthma on home O2. 8. Anxiety and depression. PLAN: We will place the patient in observation. I have initiated the chest pain guidelines and will watch her serial cardiac enzymes. I will make her NPO after midnight and we will do a gallbladder sonogram tomorrow. If needed we will consult Surgery in regards to her cholelithiasis. I will also do an echocardiogram on her as this is her second admission for chest pain. She also has a significant history with her stopping Absorbine 6. I have ordered labs for in the morning. She will need close followup with her primary care physician, Dr. Mt Montanez, on discharge as well as a surgeon for her cholelithiasis. Will continue to monitor closely and follow as needed. #[id number] MTDD
[2019-05-06] MEDS ORDERED: MORPHINE SULFATE INJ 10 MG/ML VIAL IV ONE (13:23)
[2019-05-06] MEDS ORDERED: MORPHINE SULFATE INJ 10 MG/ML VIAL IV PRN (16:17)
[2019-05-06] MEDS ORDERED: NITROGLYCERIN 0.4 MG 25 EA TAB SL PRN (16:17)
[2019-05-06] MEDS ORDERED: IV SET AND CAP CHANGE INJ INJ SCH (16:30)
[2019-05-06] MEDS: HYDROcodone 10MG/APAP 325MG 1 EA TAB PO PRN (18:42)
[2019-05-06] MEDS ORDERED: PANTOPRAZOLE SODIUM TAB 40 MG PO ONE (19:17)
[2019-05-06] MEDS: TOPIRAMATE 25 MG TAB PO SCH (20:49)
[2019-05-06] MEDS: GABAPENTIN 300 MG CAP PO SCH (20:49)
[2019-05-06] MEDS: SODIUM CHLORIDE 0.9% (FLUSH) 10 ML SYG IV SCH (20:50)
[2019-05-06] MEDS ORDERED: hydrOXYzine HCl 25 MG TAB PO SCH (21:00)
[2019-05-06] MEDS ORDERED: ENOXAPARIN SODIUM 40 MG/0.4 ML SYG SUBCU SCH (21:00)
[2019-05-06] MEDS: METHOCARBAMOL 750 MG TAB PO PRN (21:22)
[2019-05-07] MEDS: HYDROcodone 10MG/APAP 325MG 1 EA TAB PO PRN (05:22)
[2019-05-07 05:40] VITALS: BP 126/83; TEMP 97.4
[2019-05-07] MEDS ORDERED: PANTOPRAZOLE SODIUM TAB 40 MG PO SCH (06:30)
[2019-05-07] MEDS ORDERED: BUDESONIDE/FORMOTEROL 160/4.5 60 PUFF/6 GM INH INH SCH (08:00)
[2019-05-07] MEDS: METHOCARBAMOL 750 MG TAB PO PRN (08:11)
[2019-05-07] MEDS ORDERED: hydroCHLOROthiazide 25 MG TAB PO SCH (09:00)
[2019-05-07] MEDS ORDERED: LOSARTAN POTASSIUM 100 MG TAB PO SCH (09:00)
[2019-05-07] MEDS ORDERED: TOLTERODINE TARTRATE ER 4 MG CAP PO SCH (09:00)
[2019-05-07] MEDS ORDERED: ASPIRIN TABLET 325 MG TAB PO SCH (09:00)
[2019-05-07] MEDS: TOPIRAMATE 25 MG TAB PO SCH (09:17)
[2019-05-07] MEDS: GABAPENTIN 300 MG CAP PO SCH (09:17)
[2019-05-07] MEDS: SODIUM CHLORIDE 0.9% (FLUSH) 10 ML SYG IV SCH (09:19)
--- NOTE | 2019-05-07 09:27 | US ---
EXAM DESCRIPTION: Gall Bladder: ULTRASOUND. CLINICAL HISTORY: cholelithiasis COMPARISON: CTA chest 05/06/2019. TECHNIQUE: Transabdominal scanning: Mancuso-scale and Doppler modes. FINDINGS: Gallbladder: normal size, shape, echogenicity; no intraluminal stones or sludge. No fluid around the gallbladder. No wall thickening. 1.5 mm. Non-tender with transducer pressure. Common bile duct: caliber 5.1 mm within normal limits. Liver: Increased echogenicity; contour liver capsule smooth where seen. No fluid around the liver. Intrahepatic biliary ducts normal caliber. Doppler hepatopedal flow portal vein.. Long axis right lobe 14.8 cm. Pancreas: normal size and echogenicity. Duct not seen. Aorta: Proximal diameter 2.1 cm. Right kidney: 8.1 cm long axis. Cortical thickness 11 mm. Normal cortical echogenicity. No hydronephrosis, no echogenic stones, no perirenal fluid.. IMPRESSION: 1. Steatosis of the liver with normal ducts and normal flow in the portal vein. No focal lesions. Smooth capsule with no ascites. 2. Gallbladder duct and pancreas are negative. 3. Minimal thinning of the renal cortex but otherwise negative. Normal caliber of the proximal aorta and IVC. Electronically signed by: Jai Rubio MD 05/07/2019 9:24 AM CDT
[2019-05-07 09:51] VITALS: O2SAT 99
[2019-05-07] MEDS ORDERED: IBUPROFEN 400 MG TAB PO ONE (10:12)
[2019-05-07] MEDS ORDERED: ACETAMINOPHEN 325 MG TAB PO ONE (10:16)
[2019-05-07] MEDS ORDERED: hydrOXYzine HCl 25 MG TAB PO SCH (12:00)
--- NOTE | 2019-05-26 09:05 | DS ---
SUPERVISING PHYSICIAN: Mirian Peterson MD ADMISSION DIAGNOSES: 1. Chest pain, rule out acute coronary syndrome. 2. Abdominal pain with cholelithiasis and concerns for developing gallbladder issues contributing to #1. 3. Seizure disorder on Gabapentin. 4. Hypertension on medications. 5. Obstructive sleep apnea on O2 at home. 6. Chronic pain syndrome secondary to back pain on narcotics. 7. Asthma on home O2. 8. Anxiety and depression. DISCHARGE DIAGNOSES: 1. Liver steatosis with no complicating findings on CT. 2. Chest pain with cardiac enzymes being negative x3 and EKGs showing normal sinus rhythm with no ST or T-wave changes indicating acute coronary injury pattern or ischemia felt to be secondary to some mild gastritis with no complicating signs. 3. History of seizure disorder on Gabapentin with no signs of seizure activity during admission. 4. Hypertension on medications and stable. 5. Obstructive sleep apnea on O2 at home, needing followup for sleep study for possible CPAP. 6. Chronic pain syndrome on chronic pain medication to include narcotics. 7. Asthma on home O2 without any signs of exacerbation. 8. Anxiety and depression. HISTORY OF PRESENT ILLNESS: This is a 43 year-old female patient who has a 2 day history of tightness in her chest that radiates to the mid back and to the left arm. It started about 2 days ago. It lasted for several hours and then dissipated, and started back up last night. It is mid sternal. It is not alleviated by anything other than rest. There are no factors that make it worse. She came to the Emergency Room due to shortness of breath with lower extremity swelling. She was also clammy. She had some nausea but no vomiting. She does use oxygen at home due to her asthma and obstructive sleep apnea. In the E. R. her vital signs showed a temperature 97.9, heart rate 87, blood pressure 131/113, respiratory rate 20, O2 sat 99% on room air. Laboratory was done. CBC was within normal limits. PT was less than 8.9, INR was less than 1, PTT is 26.4. D-dimer was elevated at 0.60. Sodium 139, potassium 3.8, chloride 113, carbon dioxide 18, BUN 19, creatinine 0.93. Initial set of cardiac enzymes was negative and 2 hours later her troponin was less than 0.02. Chest x-ray was obtained that showed no acute process identified in the chest. A CTA of the chest was done that shows no pulmonary embolus or other acute intrathoracic abnormality. A slightly dilated gallbladder without pericholecystic inflammation. Calcified gallstone. If clinically suspicious of cholelithiasis, right upper quadrant ultrasound is suggested. I was called for hospital admission and the patient was admitted in stable condition. LABORATORY STUDIES: CBC on admission showed a white count of 6,500, at discharge was 7,000 with no left shift. Hemoglobin and hematocrit stable at 12.2 and 32.5 respectively. On discharge, studies showed just a slightly elevated D-dimer of 0.6. PT/PTT were normal. Chemistries on admission showed that she had a normal sodium and potassium. Chloride was elevated at 113 after fluids, at discharge sodium, potassium and chloride had normalized. BUN was slightly elevated at 19, creatinine was 1.0 on discharge. Liver functions were all within normal limits. Troponins were less than 0.02 times 3. RADIOLOGY: Chest x-ray in the Emergency Room per radiology interpretation showed no acute process identified in the chest. She also had a chest thoracic CTA due to the elevated D-dimer. She had no pulmonary embolus or other acute intravascular abnormalities. There was note of slightly dilated gallbladder without any peristaltic inflammation. This was followed up with a gallbladder ultrasound and per radiology interpretation was note of steatosis of the liver, normal ducts, normal flow in the portal vein, no focal lesions, smooth capsule with no ascites. There was note gallbladder duct and pancreas were negative. There was minimal thinning of the renal cortex. Please see that full report for details. HOSPITAL COURSE: Ms. Patel was admitted as noted for rule out chest pain. She had no complicating factors. EKG had no changes. Troponins were all within normal limits. She was found to be clinically stable. Hemodynamically, vital signs showed she was normotensive on discharge. Her temperature was 97.3, heart rate 77, blood pressure 118/91 with respirations 14, oxygen saturation 90% on room air. PHYSICAL EXAMINATION: GENERAL: The patient was resting comfortably and appeared to be in no acute distress. CHEST: Lungs clear to auscultation. HEART: Regular rate and rhythm. ABDOMEN: Obese but soft, non-tender with positive bowel sounds. EXTREMITIES: Without any edema. NEUROLOGIC: She is alert and oriented x3. PLAN: Ms. Patel is discharged with instructions to followup with Sandra Peoples on 05/20/2019 at 10 a.m. at [facility] as well as Cardiology which could be arranged through [facility]. At some point, she will need a stress test. She is resume all medications as instructed and given instructions to return to the Emergency Room should she have any worsening or concerning symptoms. Discharge diet: Low fat. Activities: Increase as tolerated. Medications prescribed at discharge included Protonix 40 mg daily, #30. All other medications prior to discharge were continued. Discharge condition stable and improved. Disposition: The patient is discharged home. #[id number] [facility]
== END 2019-05-07 10:54 | disposition home or self-care (01) ==
LOC: ER 09:56 → MS 12:43
PROVIDERS: ADMIT Nurse Practitioner Acute Care; ATTEND Nurse Practitioner Family
DX: R07.89 Other chest pain (principal); K80.20 Calculus of gallbladder without cholecystitis without obstruction; E86.0 Dehydration; G40.909 Epilepsy, unspecified, not intractable, without status epilepticus; I10 Essential (primary) hypertension; G47.33 Obstructive sleep apnea (adult) (pediatric); G89.4 Chronic pain syndrome; J45.909 Unspecified asthma, uncomplicated; F41.9 Anxiety disorder, unspecified; F32.9 Major depressive disorder, single episode, unspecified; R60.0 Localized edema; K76.0 Fatty (change of) liver, not elsewhere classified; Z99.81 Dependence on supplemental oxygen; Z79.891 Long term (current) use of opiate analgesic; Z79.899 Other long term (current) drug therapy; Z90.710 Acquired absence of both cervix and uterus
CPT/HCPCS: 96374; 96375; 96372; J1885; J2270; J7030; J1650; 85379; 80048 ×2; 82553 ×3; 80061; 36415 ×3; 82550 ×3; 85025 ×2; 85730; 85610; 84484 ×4; 80076; 83880; 71045; 71275; 76705; 94760 ×3; 99285; 93005 ×3; G0378

== ENCOUNTER 2019-05-28 09:35 | Emergency (ER) | payer OTHER ==
--- NOTE | 2019-05-28 10:05 | ED.PDOC ---
History of Present Illness - General Chief Complaint: Abdominal Pain Stated Complaint: RUQ abdominal pain Time Seen by Provider: 05/28/19 09:57 Information Source: patient Exam Limitations: no limitations - History of Present Illness Initial Comments: SHE HAS A HX OF GALLBLADDER DISEASE AND SEES DR. BLACKBURN. SHE IS SCHEDULED FOR SURGERY IN THE NEAR FUTURE. SHE VOICES THAT SHE HAD [place] FRIES, A HAM AND CHEESES, MAY SANDWICH LAST NIGHT AND THEN AROUNF THREE OR FOUR O'CLOCK SHE STARTED WITH A BILIARY COLIC. HAS BEEN NAUSEATED. THE PAIN ON THE RUQ RADIATES TO THE BACK AND RATES IT 05/10/ Abdominal Pain Onset Location: RUQ Pain Radiation: back Quality: severe Timing/Duration: 4-6 hours Improving Factors: nothing Worsening Factors: nothing Associated Symptoms: nausea/vomiting Review of Systems - Review of Systems Constitutional: States: no symptoms reported EENTM: States: no symptoms reported Respiratory: States: no symptoms reported Cardiology: States: no symptoms reported Gastrointestinal/Abdominal: States: abdominal pain, nausea Musculoskeletal: States: no symptoms reported Skin: States: no symptoms reported Neurological: States: no symptoms reported Endocrine: States: no symptoms reported Hematologic/Lymphatic: States: no symptoms reported Past Medical History (General) - Patient Medical History 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 Hx Stroke: Yes - mark 10 yrs ago left sided numbness Hx Dementia: No Hx Asthma: No Hx of COPD: Yes Hx Cardiac Disorders: No Hx Congestive Heart Failure: No Hx Pacemaker: No Hx Hypertension: Yes Hx Thyroid Disease: No Hx Diabetes: No Hx Gastroesophageal Reflux: No Hx Renal Disease: No Hx Cancer: No Hx of HIV: No Hx Hepatitis C: No Hx MRSA: No Surgical History: Hysterectomy - Vaccination History Hx Tetanus, Diphtheria Vaccination: Yes Hx Influenza Vaccination: Yes Hx Pneumococcal Vaccination: Yes - Social History Hx Tobacco Use: No Hx Chewing Tobacco Use: No Hx Alcohol Use: No Hx Substance Use: No Hx Substance Use Treatment: No Hx Depression: No Hx Physical Abuse: No Hx Emotional Abuse: No Hx Suspected Abuse: No - Female History Patient is a Female of Child Bearing Age (10 -59 yrs old): No Patient : No Family Medical History - Family History Mother Family History: Unknown Living Status: Unknown Hx Family Hypertension: Yes - parents Hx Family Stroke: Yes - brain aneurysm-dad,sister from it Hx Cardiac Disease: Yes - parents Physical Exam - Physical Exam General Appearance: Alert, Ill Appearing, Well Developed, Well Groomed, Well Hydrated, Well Nourished Eyes, Ears, Nose, Throat Exam: PERRL/EOMI, normal ENT inspection Neck: non-tender, full range of motion, supple, normal inspection Respiratory: chest non-tender, lungs clear, normal breath sounds, no respiratory distress Cardiovascular/Chest: normal peripheral pulses, regular rate, rhythm, no edema, no gallop, no JVD Peripheral Pulses: No deficit Gastrointestinal/Abdominal: normal bowel sounds, other - EXQUISITE TENDERNESS TO THE RUQ, POSITIVE MILLER SIGN NOTED. Rectal Exam: deferred Back Exam: normal inspection Extremity: normal range of motion Neurologic: no motor/sensory deficits, alert, normal mood/affect, oriented x 3 Progress - Progress Progress: 05/28/19 11:09 THE PAIN SEEMS IMPROVED. SHE HAS AN APPOINTMENT FOR A HIDA SCAN IN THE AM. LAB IS NORMAL. I HAVE REVIEWED THE GB SONO AND NO STONES ARE NOTED, THE GB WALL WAS NOT THICKENED THE MAIN DUCT WAS WNL. WILL DC HOME. I WILL GIVE FEED BACK TO DR. BLACKBURN (IN SURGERY WILL CALL WHEN FINISHED). - Results/Orders Results/Orders: Laboratory Results WBC 6.0 K/mm3 (4.8-10.8) 05/28/19 10:00 RBC 4.13 M/mm3 (4.20-5.40) L 05/28/19 10:00 Hgb 12.7 gm/dL (12.0-16.0) 05/28/19 10:00 Hct 37.6 % (36.0-47.0) 05/28/19 10:00 MCV 91.0 fl (81.0-99.0) 05/28/19 10:00 MCH 30.7 pg (27.0-31.0) 05/28/19 10:00 MCHC 33.7 g/dL (33.0-37.0) 05/28/19 10:00 RDW 13.2 % (11.5-14.5) 05/28/19 10:00 Plt Count 211 K/mm3 (130-400) 05/28/19 10:00 MPV 8.5 fl (7.40-10.4) 05/28/19 10:00 Absolute Neuts (auto) 3.90 K/uL (1.8-6.8) 05/28/19 10:00 Absolute Lymphs (auto) 1.40 K/uL (1.0-3.4) 05/28/19 10:00 Absolute Monos (auto) 0.50 K/uL (0.2-0.8) 05/28/19 10:00 Absolute Eos (auto) 0.20 K/uL (0.0-0.4) 05/28/19 10:00 Absolute Basos (auto) 0.00 K/uL (0.0-0.1) 05/28/19 10:00 Neutrophils % 65.6 % (42.0-78.0) 05/28/19 10:00 Lymphocytes % 23.1 % (20.0-50.0) 05/28/19 10:00 Monocytes % 7.7 % (2.0-9.0) 05/28/19 10:00 Eosinophils % 3.2 % (1.0-5.0) 05/28/19 10:00 Basophils % 0.4 % (0.0-2.0) 05/28/19 10:00 Sodium 141 mmol/L (135-145) 05/28/19 10:00 Potassium 3.6 mmol/L (3.6-5.0) 05/28/19 10:00 Chloride 114 mmol/L (101-111) H 05/28/19 10:00 Carbon Dioxide 18 mmol/L (21-31) L 05/28/19 10:00 Anion Gap 12.6 (12-18) 05/28/19 10:00 BUN 14 mg/dL (7-18) 05/28/19 10:00 Creatinine 0.94 mg/dL (0.6-1.3) 05/28/19 10:00 BUN/Creatinine Ratio 14.9 (10-20) 05/28/19 10:00 Random Glucose 100 mg/dL (70-105) 05/28/19 10:00 Serum Osmolality 281.8 mOsm/L (275-295) 05/28/19 10:00 Calcium 10.2 mg/dL (8.4-10.2) 05/28/19 10:00 Total Bilirubin 0.4 mg/dL (0.2-1.0) 05/28/19 10:00 AST 21 IU/L (10-42) 05/28/19 10:00 ALT 19 IU/L (10-60) 05/28/19 10:00 Alkaline Phosphatase 70 IU/L (42-121) 05/28/19 10:00 Serum Total Protein 6.7 gm/dL (6.4-8.2) 05/28/19 10:00 Albumin 4.1 g/dl (3.2-5.5) 05/28/19 10:00 Globulin 2.6 gm/dL (2.3-3.5) 05/28/19 10:00 Albumin/Globulin Ratio 1.6 (1.1-1.9) 05/28/19 10:00 Lipase 25 U/L (22-51) 05/28/19 10:00 Departure - Departure Clinical Impression: Abdominal pain Qualifiers: Abdominal location: right upper quadrant Qualified Code(s): R10.11 - Right upper quadrant pain Time of Disposition: 11:14 Disposition: Discharge to Home or Self Care Departure Forms: ED Discharge - Pt. Copy, Patient Portal Self Enrollment Instructions: DI for Abdominal Pain-Adult Diet: other - NO GREASY MEALS Activity: increase activity as tolerated Referrals: QUINCY HERNANDEZ [Primary Care Provider] - 1-2 Weeks Home Medications: Ambulatory Orders Fesoterodine Fumarate [Toviaz] 8 mg PO DAILY #0 07/01/13 Eletriptan Hydrobromide [Relpax] 40 mg PO DAILY PRN 12/06/14 Gabapentin 600 mg PO TID 04/03/15 HYDROcodone 10MG/APAP 325MG 1 each PO TID PRN 04/03/15 Benzonatate 200 mg PO Q12H 05/06/19 Budesonide-Formoterol Fumarate [Symbicort 160-4.5 Mcg/Act] 1 aer IN DAILY 05/06/19 Clonazepam 0.5 mg PO Q6H PRN 05/06/19 Hydroxyzine HCl 12.5 mg PO NOON 05/06/19 Hydroxyzine HCl 25 mg PO BEDTIME 05/06/19 Losartan Potassium & Hydrochlo [Losartan Potassium/Hydroc 100-25 mg] 1 tab PO DAILY 05/06/19 Methocarbamol 500 mg PO QID PRN 05/06/19 Multiple Vitamins W/ Minerals [Womens One Daily] 1 tab PO DAILY 05/06/19 Topiramate [Topamax] 200 mg PO BID 05/06/19 Pantoprazole Tablet [Protonix] 40 mg PO DAILY@0630 #30 tab 05/07/19 Additional Instructions: KEEP APPOINTMENT FOR THE HIDA SCAN.
[2019-05-28] MEDS: ONDANSETRON INJ 4 MG/2 ML VIAL IV ONE ×2 (10:06→11:24)
[2019-05-28] MEDS: MORPHINE SULFATE INJ 10 MG/ML VIAL IV ONE ×2 (10:09→11:26)
[2019-05-28 10:49] VITALS: O2SAT 98
[2019-05-28 11:42] VITALS: BP 127/89; TEMP 96.3
== END 2019-05-28 11:41 | disposition home or self-care (01) ==
LOC: ER 09:35
DX: R10.11 Right upper quadrant pain (principal); R11.0 Nausea; G40.909 Epilepsy, unspecified, not intractable, without status epilepticus; J44.9 Chronic obstructive pulmonary disease, unspecified; I10 Essential (primary) hypertension; Z90.710 Acquired absence of both cervix and uterus; Z86.73 Personal history of transient ischemic attack (TIA), and cerebral infarction without residual deficits
CPT/HCPCS: 36415; 80053; 83690; 85025; J2270; J2405

== ENCOUNTER → 2019-05-29 | Outpatient (CLI) | payer OTHER ==
--- NOTE | 2019-05-29 15:44 | NM ---
EXAM DESCRIPTION: Hepatobiliary w/CCK: Nuclear Medicine. CLINICAL HISTORY: R10.11. Right upper quadrant pain. COMPARISON: Gallbladder ultrasound 05/07/2019. TECHNIQUE: Patient was given 8.1 mCi of technetium 99 M mebrofenin (Choletec) radiopharmaceutical IV. Anterior gamma camera images were obtained of the right upper quadrant at 5 minute intervals for one hour . The patient was then given 2.4 mcg CCK IV infusion over 30-minute interval. Gallbladder ejection fraction was evaluated by measuring diminishing radioactivity in the gallbladder, over 30 min interval. FINDINGS: After radiopharmaceutical administration, immediate visualization of the liver parenchyma with no focal regions of increased activity or photopenia. Timely visualization of the intrahepatic ducts, gallbladder, common bile duct, and small intestine. After CCK administration began, patient had some nausea. Intermediate decrease in activity after CCK administration with 90% of the activity decreased by 10 minutes and 91% activity decreased by 30 minutes. IMPRESSION: 1. No intrahepatic or extrahepatic biliary obstruction. Timely visualization of the gallbladder and small bowel. 2. Normal gallbladder ejection fraction. Minimal nausea during CCK IV administration. Electronically signed by: Jai Rubio MD 05/29/2019 3:43 PM CDT
== END ==
LOC: NM 08:00
PROVIDERS: ATTEND Surgery
DX: R10.11 Right upper quadrant pain (principal)
CPT/HCPCS: 78227; A9537

== ENCOUNTER → 2019-10-27 | Outpatient (CLI) | payer OTHER ==
--- NOTE | 2019-10-27 13:58 | CT ---
Study: CT abdomen and pelvis. Indication: EPIASTRIC PAIN Technique: Venous phase CT imaging of the abdomen and pelvis obtained after intravenous administration of contrast. This exam was performed according to our departmental dose-optimization program, which includes automated exposure control, adjustment of the mA and/or kV according to patient size and/or use of iterative reconstruction technique. Comparison: None. Findings: Lower chest, liver, gallbladder, pancreas, spleen, adrenal glands, left kidney unremarkable. Mild atrophy right kidney. Bladder incompletely distended. Mild fluid within the uterine cavity. The uterus appears small and may be partially absent. Indeterminate low-density cystic lesions bilateral kidneys with that on the left measuring up to 21 mm. Mild constipation. Stomach, small bowel unremarkable. Appendix not definitively visualized. No free fluid. No free air. No pathologically enlarged adenopathy. Atherosclerosis aorta. Degenerative changes of the spine noted. Impression: Mild constipation Indeterminate tiny low-density lesions bilateral ovaries. Correlation with pelvic sonogram recommended. Additional findings as above. Electronically signed by: Willy Blood MD 10/27/2019 1:56 PM RISK PREVENTION ENGINEER
== END ==
LOC: LAB.O 11:54
PROVIDERS: ATTEND Emergency Medicine
DX: K59.00 Constipation, unspecified (principal); N83.9 Noninflammatory disorder of ovary, fallopian tube and broad ligament, unspecified

== ENCOUNTER → 2020-07-01 | Outpatient (CLI) | payer OTHER ==
--- NOTE | 2020-07-02 08:17 | US ---
Procedure: US LOWER EXTREMITY VEINS LIMITED/UNILATERAL/FOLLOW UP, US LOWER EXTREMITY VEINS LIMITED/UNILATERAL/FOLLOW UP Exam Date: 07/01/2020 Ordering Provider: QUINCY HERNANDEZ Clinical Indication: PERIPHERAL EDEMA Comparison: None Real time ultrasound was utilized for evaluation of the deep veins of the bilateral lower extremity. Color Doppler and pulse Doppler analysis was performed, including B-mode/grayscale imaging, Doppler spectral analysis and color flow analysis. Real time visualization of the bilateral lower extremity deep veins was accomplished. Chief Science Officer images recorded. The deep veins demonstrated no abnormal intraluminal signal. The pulse Doppler and color Doppler flow patterns demonstrated normal venous flow with respiratory variation. There was increased flow with distal augmentation maneuvers. IMPRESSION: No evidence of DVT in the bilateral lower extremity. Electronically signed by: Klaus Palacios MD 07/02/2020 8:16 AM CDT
== END ==
LOC: US 11:03
PROVIDERS: ATTEND Emergency Medicine
DX: R60.9 Edema, unspecified (principal)